=== PATIENT | female | born 1970 | race Caucasian/White ===

== ENCOUNTER 2025-04-23 23:34 | Emergency (ER) | payer OTHER ==
[2025-04-23 23:44] VITALS: BMI 29.2
[2025-04-24] MEDS ORDERED: ASPIRIN 81 MG CHEWABLE TABLETS ONE (00:37)
[2025-04-24 00:40] LABS: ABSOLUTE IMMATURE GRANULOCYTES 0.03 x10^3/uL (0.0-0.031); BASOPHILS # 0.02 x10^3/uL (0.01-0.08); EOSINOPHIL % 2.7 % (0.7-5.8); EOSINOPHILS # 0.18 x10^3/uL (0.04-0.36); MCHC 32.3 g/dl (32.2-35.5); MEAN CELL VOLUME 87.1 fl (79.4-94.8); MEAN PLT VOLUME 9.7 fl (9.4-12.3); MONOCYTE # 0.79 x10^3/uL (0.24-0.86); MONOCYTE % 11.7 % (4.7-12.5); RDW 13.2 % (12.3-16.6)
[2025-04-24] MEDS ORDERED: ACETAMINOPHEN INJECTION 100 ML ONE (00:40)
[2025-04-24] MEDS: ASPIRIN 81 MG CHEWABLE TABLETS PO ONE (00:45)
[2025-04-24] MEDS: ACETAMINOPHEN 1000 MG/100 ML BAG IVPB ONE (00:46)
[2025-04-24] MEDS: SODIUM CHLORIDE 500 ML IV STA (00:49)
[2025-04-24 00:58] LABS: GLUCOSE,RANDOM 104.0 mg/dL (74-106); TOT PROT 7.6 g/dl (6.4-8.2)
[2025-04-24 00:59] LABS: CO2 23.0 mmol/L (21-32)
[2025-04-24 01:01] LABS: ALK PHOS 106.0 U/L (40-150)
[2025-04-24 01:03] LABS: SGOT/AST 28.0 U/L (5-34); SGPT/ALT 33.0 U/L (0-55)
[2025-04-24 01:04] LABS: CREATININE 0.76 mg/dL (0.55-1.3)
[2025-04-24 01:24] LABS: HCV DIAGNOSTIC IN-HOUSE W/RFLX NON-REACTIVE (NONREACTIVE); HIV INTERPRETATION NEGATIVE (NEGATIVE)
[2025-04-24] MEDS ORDERED: HYDROCHLOROTHIAZIDE 25 MG TABLET (FP) ONE (01:33)
[2025-04-24 01:42] LABS: N-TERMINAL BNP 144.5 pg/mL (0-299.9)
[2025-04-24] MEDS: HYDROCHLOROTHIAZIDE 12.5 MG CAPSULE (FP) PO ONE (01:44)
[2025-04-24 02:12] VITALS: BP 170/99; PULSE 76; RESP 20; TEMP 98
== END 2025-04-24 02:12 | disposition home or self-care (01) ==
LOC: JER 23:34
DX: R07.89 Other chest pain (principal); R06.02 Shortness of breath; R42 Dizziness and giddiness; Z91.148 Patient's other noncompliance with medication regimen for other reason
CPT/HCPCS: 36415; 71046-TC-FY; 80053; 83735; 83880; 84484; 85025; 86803; 87389; 93005; 93010; 99285-25